=== PATIENT | male | born 1990 | race Caucasian/White ===

== ENCOUNTER 2018-02-22 06:36 | Emergency (ER) | payer SELFPAY ==
[2018-02-22] MEDS ORDERED: CIPROFLOXACIN HCL/DEXAMETH OTIC DROP 7.5 ML AU ONE (07:49)
[2018-02-22] MEDS ORDERED: LIDOCAINE 2% URO-JET 5 ML KIT MM ONE (07:49)
--- NOTE | 2018-02-22 07:51 | ER Document Report ---
ED ENT - General Chief Complaint: Ear Pain Stated Complaint: EAR PAIN Time Seen by Provider: 02/22/18 07:17 Mode of Arrival: Ambulatory Information source: Patient Notes: Patient is a 28-year-old male who presents to the ER today for bilateral ear pain times approximately 4 days. Patient states that he was swimming in a pool yesterday and the right ear started hurting worse. He denies any drainage from the ears, states that he did try [id number] earwax drops that seem to help a little. Patient denies any sore throat, cough, runny nose, fever or chills. He denies any loss of hearing. TRAVEL OUTSIDE OF THE [place] IN LAST 30 DAYS: No - Related Data Allergies/Adverse Reactions: No Known Allergies Allergy (Unverified 02/22/18 06:38) Past Medical History - General Information source: Patient - Social History Smoking Status: Current Every Day Smoker Chew tobacco use (# tins/day): No Frequency of alcohol use: Rare Drug Abuse: None Family History: Reviewed & Not Pertinent Patient has suicidal ideation: No Patient has homicidal ideation: No Renal/ Medical History: Denies: Hx Peritoneal Dialysis Review of Systems - Review of Systems Constitutional: No symptoms reported EENT: See HPI Cardiovascular: No symptoms reported Respiratory: No symptoms reported Gastrointestinal: No symptoms reported Genitourinary: No symptoms reported Male Genitourinary: No symptoms reported Musculoskeletal: No symptoms reported Skin: No symptoms reported Hematologic/Lymphatic: No symptoms reported Neurological/Psychological: No symptoms reported Physical Exam - Vital signs Vitals: Temp Pulse Resp BP Pulse Ox 97.9 F 79 20 135/79 H 96 02/22/18 06:40 02/22/18 06:40 02/22/18 06:40 02/22/18 06:40 02/22/18 06:40 - Notes Notes: PHYSICAL EXAMINATION: GENERAL: Well-appearing and in no acute distress. HEAD: Atraumatic, normocephalic. EYES: Pupils equal round and reactive to light, extraocular movements intact, sclera anicteric, conjunctiva are normal. ENT: Left ear canal erythematous, edematous with tenderness to otoscope exam, no discharge, TMs pearly rene with good bony landmarks, nares patent, oropharynx clear without exudates. Moist mucous membranes. Bilateral mastoids nontender and nonerythematous NECK: Normal range of motion, supple without lymphadenopathy LUNGS: CTAB and equal. No wheezes rales or rhonchi. HEART: Regular rate and rhythm without murmurs EXTREMITIES: Normal range of motion, no pitting edema. No cyanosis. NEUROLOGICAL: Cranial nerves grossly intact. Normal sensory/motor exams. PSYCH: Normal mood, normal affect. SKIN: Warm, Dry, normal turgor, no rashes or lesions noted Course - Re-evaluation Re-evalutation: 02/22/18 08:21 Patient is at home with Ciprodex eardrops for the entire course of treatment from here. - Vital Signs Vital signs: Temp Pulse Resp BP Pulse Ox 97.9 F 79 20 135/79 H 96 02/22/18 06:40 02/22/18 06:40 02/22/18 06:40 02/22/18 06:40 02/22/18 06:40 Discharge - Discharge Clinical Impression: Right otitis externa Qualifiers: Otitis externa type: swimmer's ear Chronicity: acute Qualified Code(s): H60.331 - Swimmer's ear, right ear Condition: Stable Disposition: HOME, SELF-CARE Instructions: Use of Ear Drops ([facility]), Otitis Externa ([facility]) Additional Instructions: You can put the lidocaine jelly in the ear, approximately 1 drop of it every 2 hours as needed for pain. Return immediately for any new or worsening symptoms. Follow up with primary care provider, call tomorrow to make followup appointment. No swimming until symptoms resolve and the ear feels better. Probably about 5 days. Forms: Return to Work
[2018-02-22 08:33] VITALS: BP 144/87
== END 2018-02-22 08:33 | disposition home or self-care (01) ==
LOC: ER 06:36
DX: H60.331 Swimmer's ear, right ear (principal); H92.03 Otalgia, bilateral; F17.200 Nicotine dependence, unspecified, uncomplicated
CPT/HCPCS: 99282; J3490 ×2

== ENCOUNTER 2020-05-12 07:43 | Emergency (ER) | payer OTHER ==
[2020-05-12] MEDS ORDERED: KETOROLAC TROMETHAMINE 0.45% 4 DROP/0.4 ML DROPERETTE OU ONE (08:19)
[2020-05-12] MEDS ORDERED: TETRACAINE HCL 0.5% OPH SOLN 4 ML OU ONE (08:19)
--- NOTE | 2020-05-12 08:49 | ER Document Report ---
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 He reports bilateral eye pain with blurry vision. TRAVEL OUTSIDE OF THE [place] IN LAST 30 DAYS: No - Related Data Allergies/Adverse Reactions: No Known Allergies Allergy (Unverified 02/22/18 06:38) Past Medical History - General Information source: Patient - Social History Smoking Status: Current Every Day Smoker Cigarette use (# per day): Yes - 1 ppd Frequency of alcohol use: None Drug Abuse: None Lives with: Family Family History: Reviewed & Not Pertinent - Medical History Medical History: Negative Surgical Hx: Negative Review of Systems - Review of Systems Constitutional: No symptoms reported EENT: See HPI, Eye pain Cardiovascular: No symptoms reported Respiratory: No symptoms reported Gastrointestinal: No symptoms reported Genitourinary: No symptoms reported Male Genitourinary: No symptoms reported Musculoskeletal: No symptoms reported Skin: No symptoms reported Hematologic/Lymphatic: No symptoms reported Neurological/Psychological: No symptoms reported -: Yes All other systems reviewed and negative Physical Exam - Vital signs Vitals: Temp Pulse Resp BP Pulse Ox 98.3 F 77 18 160/94 H 97 05/12/20 07:48 05/12/20 07:48 05/12/20 07:48 05/12/20 07:48 05/12/20 07:48 - Notes Notes: Physical Exam: General: Alert, appears uncomfortable. HEENT: Normocephalic. Atraumatic. PERRLA. Extraocular movements intact. Oropharynx clear. Bilateral conjunctival injection. Photophobia. Neck: Supple. Respiratory: No respiratory distress. Abdominal: Normal Inspection. No distension. Extremities: Moves all four extremities. Neurological: Normal cognition. AAOx4. Normal speech. Psychological: Normal affect. Normal Mood. Skin: Warm. Dry. Normal color. Course - Vital Signs Vital signs: Temp Pulse Resp BP Pulse Ox 98.3 F 80 18 141/92 H 100 05/12/20 07:48 05/12/20 09:23 05/12/20 07:48 05/12/20 09:23 05/12/20 09:23 Procedures - Eye Procedure Bilateral Alcaine Drops Administered: Yes Acular drops administered: Bilateral Antibiotic Oinment/Drps Admin: Both eyes Cyclogel 2 Drops Administered: Both eyes Slit lamp used: No Notes: 05/12/20 15:58 Fluorescein stain and black light shows hazy uptake on the cornea is with the right being slightly more than the left. Both eyes irrigated with normal saline after the examination. Discharge - Discharge Clinical Impression: UV conjunctivitis Qualifiers: Laterality: bilateral Qualified Code(s): H16.133 - Photokeratitis, bilateral Condition: Stable Disposition: HOME, SELF-CARE Additional Instructions: Corneal Ultraviolet Burn The cornea of your eye has been burned by ultraviolet radiation. This is often called "flash burn," because it's usually caused by exposure to arc welding. Your eye may be red and painful until completely healed. Swelling of the cornea makes it difficult to see clearly. The usual treatment is to place antibiotics in the eye. If the eye is severely irritated, the pupil may be dilated to ease the pain. In addition, pain medication may be necessary. Repeated use of numbing drops is hazardous, so they are not prescribed. Don't drive or operate machinery until you have the full use of both eyes. Healing of the cornea usually occurs overnight. If the eye pain becomes severe, or if there is purulent drainage, call the doctor or return at once for re-evaluation. Put the ketorolac eyedrops--1 drop into each eye every 4 hours for the next 1 to 2 days until the eyes are no longer painful. Put the polymyxin antibiotic eyedrops--1 drop into each eye every 4 hours for the next 2 to 3 days. Use ice packs to the eyes for additional pain relief today. Take Tylenol and ibuprofen as needed for headache and pain. Follow-up with a local eye doctor if not improving over the next 1 to 2 days. RETURN TO THE EMERGENCY ROOM IF ANY NEW OR WORSENING SYMPTOMS. Prescriptions: Ketorolac Tromethamine [Acular] 1 drop OU Q4 PRN #5 ml PRN Reason: I personally performed the services described in the documentation, reviewed and edited the documentation which was dictated to the scribe in my presence, and it accurately records my words and actions.
[2020-05-12] MEDS ORDERED: POLYMYXIN B SULFATE/TMP OPH SOLN (10 ML/ER DISP) OU ONE (08:57)
[2020-05-12] MEDS ORDERED: IBUPROFEN 800 MG TABLET PO ONE (09:02)
[2020-05-12 09:25] VITALS: BP 141/92
== END 2020-05-12 09:26 | disposition home or self-care (01) ==
LOC: ER 07:43
DX: H16.133 Photokeratitis, bilateral (principal); W89.8XXA Exposure to other man-made visible and ultraviolet light, initial encounter; Y99.0 Civilian activity done for income or pay; F17.210 Nicotine dependence, cigarettes, uncomplicated
CPT/HCPCS: 99283; J3490 ×2

== ENCOUNTER 2020-07-03 12:40 | Emergency (ER) | payer SELFPAY ==
[2020-07-03 13:13] VITALS: BP 152/94
--- NOTE | 2020-07-03 13:32 | ER Document Report ---
ED Medical Screen (RME) - General Chief Complaint: Facial Swelling Stated Complaint: EYE SWELLING/PAIN Time Seen by Provider: 07/03/20 13:26 Mode of Arrival: Ambulatory Information source: Patient Notes: 30-year-old male presented to ED for cellulitis around the left eye. He states he had a bump that he thought was a pimple above his left eye. He states he squeezed it about 3 AM. He states since then he has had pain and swelling redness and heat to the left side of his face down to below his eye. His eye is partially swollen shut. I have ordered blood and a IV contrasted CT of the f jewel. He will be seen by another provider. States she smokes 1/2 pack a day does not drink or do any drugs does not have any past medical or surgical history. I have greeted and performed a rapid initial assessment of this patient. A comprehensive ED assessment and evaluation of the patient, analysis of test results and completion of medical decision making process will be conducted by an additional ED providers. TRAVEL OUTSIDE OF THE [place] IN LAST 30 DAYS: No - Related Data Allergies/Adverse Reactions: No Known Allergies Allergy (Unverified 02/22/18 06:38) Past Medical History Renal/ Medical History: Denies: Hx Peritoneal Dialysis Physical Exam - Vital signs Vitals: Temp Pulse Resp BP Pulse Ox 98.0 F 80 18 152/94 H 100 07/03/20 13:12 07/03/20 13:12 07/03/20 13:12 07/03/20 13:12 07/03/20 13:12 Course - Vital Signs Vital signs: Temp Pulse Resp BP Pulse Ox 98.0 F 80 18 152/94 H 100 07/03/20 13:12 07/03/20 13:12 07/03/20 13:12 07/03/20 13:12 07/03/20 13:12
[2020-07-03 14:08] LABS: ABSOLUTE BASOPHILS # (AUTO) 0.1 10^3/uL (0.0-0.2); ABSOLUTE EOSINOPHILS # (AUTO) 0.2 10^3/uL (0.0-0.6); ABSOLUTE LYMPHOCYTES (AUTO) 2.3 10^3/uL (0.5-4.7); ABSOLUTE MONOCYTES (AUTO) 1.2 10^3/uL (0.1-1.4); ABSOLUTE NEUT (AUTO) 6.8 10^3/uL (1.7-8.2); BASOPHILS % (AUTO) 0.5 % (0-2); EOSINOPHILS % (AUTO) 1.9 % (0-6); HEMATOCRIT 48.3 % (37.9-51.0); HEMOGLOBIN 16.6 g/dL (13.5-17.0); LYMPHOCYTES % (AUTO) 21.6 % (13-45); MEAN CORPUSCULAR HEMOGLOBIN 31.3 pg (27.0-33.4); MEAN CORPUSCULAR HGB CONC 34.4 g/dL (32.0-36.0); MEAN CORPUSCULAR VOLUME 91 fl (80-97); MONOCYTES % (AUTO) 11.7 % (3-13); PLATELET COUNT 203 10^3/uL (150-450); RED CELL DISTRIBUTION WIDTH 13.4 % (11.5-14.0); SEGMENTED NEUTROPHILS % (AUTO) 64.3 % (42-78); TOTAL CELLS COUNTED % (AUTO) 100 %; WHITE BLOOD COUNT 10.6 10^3/uL (4.0-10.5)
--- NOTE | 2020-07-03 14:09 | RADIOLOGY REPORT (SQ) ---
EXAM DESCRIPTION: CT FACIAL AREA WITH IMAGES COMPLETED DATE/TIME: 07/03/2020 1:58 pm REASON FOR STUDY: Facial cellulitis around the left eye COMPARISON: None. TECHNIQUE: Post contrast images through the facial bones and orbits windowed for bone and soft tissu e. Additional coronal and sagittal reconstructed images reviewed. All images stored on PACS. All CT scanners at this facility use dose modulation, iterative reconstruction, and/or weight based d osing when appropriate to reduce radiation dose to as low as reasonably achievable (ALARA). [facility]: Dose Right [facility]: CareDose [facility]: Dose Right [facility]: Teradose 4D [facility]: [employer] CONTRAST TYPE AND DOSE: 50 mL Omnipaque 350- low osmolar. RENAL FUNCTION: None required. The patient is less than 50 years old. RADIATION DOSE: CT Rad equipment meets quality standard of care and radiation dose reduction techniq ues were employed. CTDIvol: 30.4 mGy. DLP: 612 mGy-cm. . LIMITATIONS: None. FINDINGS: FACIAL BONES: No fracture or bone lesion. ORBITS: Periorbital swelling on the left. No focal drainable abscess. No postseptal involvement. PARANASAL SINUSES: Clear. No significant mucosal thickening, mass or fluid. No nasal polyps. Maxilla ry sinus outlets are patent. SOFT TISSUES: Occasional reactive lymph node is noted. INFERIOR BRAIN: Limited view. No acute findings. OTHER: No other significant finding. IMPRESSION: Left periorbital cellulitis. No focal drainable abscess. No postseptal involvement. TECHNICAL DOCUMENTATION: JOB ID: [id number] Quality ID # [id number]: Final reports with documentation of one or more dose reduction techniques (e.g., Au tomated exposure control, adjustment of the mA and/or kV according to patient size, use of iterative reconstruction technique) 2010 [employer]- All Rights Reserved Reading location - IP/workstation name: [email or web address]
[2020-07-03 14:41] LABS: ALBUMIN 4.6 g/dL (3.5-5.0); ALKALINE PHOSPHATASE 82 U/L (38-126); ANION GAP 12 (5-19); ASPARTATE AMINO TRANSFERASE 30 U/L (17-59); BILIRUBIN,DIRECT 0.1 mg/dL (0.0-0.4); BILIRUBIN,TOTAL 0.7 mg/dL (0.2-1.3); BLOOD UREA NITROGEN 16 mg/dL (7-20); CALCIUM 9.9 mg/dL (8.4-10.2); CARBON DIOXIDE 25 mmol/L (22-30); CHLORIDE 104 mmol/L (98-107); GLUCOSE 96 mg/dL (75-110); POTASSIUM 3.9 mmol/L (3.6-5.0); TOTAL PROTEIN 7.6 g/dL (6.3-8.2)
[2020-07-03] MEDS ORDERED: CLINDAMYCIN 600 MG/D5W RTU 600 MG/50 ML RTUPB IV ONE ×2 (18:26→20:00)
[2020-07-03] MEDS ORDERED: CLINDAMYCIN 900 MG/D5W RTU 900 MG/50 ML RTUPB IV ONE (18:35)
[2020-07-03] MEDS ORDERED: DEXAMETHASONE SOD PHOSPHATE INJ 4 MG/1 ML VIAL IV ONE (18:36)
[2020-07-03] MEDS ORDERED: KETOROLAC TROMETHAMINE INJ/PF 30 MG/1 ML SDV IV ONE (19:02)
[2020-07-03] MEDS ORDERED: CLINDAMYCIN 600 MG/D5W RTU 600 MG/50 ML RTUPB IV SCH (19:45)
--- NOTE | 2020-07-03 20:12 | ER Document Report ---
ED General - General Chief Complaint: Facial Swelling Stated Complaint: EYE SWELLING/PAIN Time Seen by Provider: 07/03/20 13:26 Mode of Arrival: Ambulatory Information source: Patient, [facility] Records Notes: This 30-year-old male patient comes emergency room complaining of pain and swelling around his left eye. He reports he had a pimple up above the eyebrow that he squeezed last night but did not get anything out of it. This morning it was more swollen so he squeezed it again without getting anything out of it. Throughout the day he developed swelling that ended up going around the eye and was becoming quite painful. Patient denies visual problems, denies fever. He was seen at triage where lab work and a CT scan was ordered. The contrasted CT scan showed periorbital cellulitis without focal drainable abscess or post septal involvement. TRAVEL OUTSIDE OF THE [place] IN LAST 30 DAYS: No - Related Data Allergies/Adverse Reactions: No Known Allergies Allergy (Unverified 02/22/18 06:38) Past Medical History - General Information source: Patient, [facility] Records - Social History Smoking Status: Current Every Day Smoker Cigarette use (# per day): Yes - 1 PPD Chew tobacco use (# tins/day): No Smoking Education Provided: No Frequency of alcohol use: None Drug Abuse: None Lives with: Parents Family History: Reviewed & Not Pertinent - Medical History Medical History: Negative Surgical Hx: Negative Review of Systems - Review of Systems Constitutional: No symptoms reported. denies: Fever EENT: See HPI Cardiovascular: No symptoms reported Respiratory: No symptoms reported Gastrointestinal: No symptoms reported Genitourinary: No symptoms reported Musculoskeletal: No symptoms reported Skin: No symptoms reported Hematologic/Lymphatic: No symptoms reported Neurological/Psychological: No symptoms reported Physical Exam - Vital signs Vitals: Temp Pulse Resp BP Pulse Ox 98.0 F 80 18 152/94 H 100 07/03/20 13:12 07/03/20 13:12 07/03/20 13:12 07/03/20 13:12 07/03/20 13:12 - General General appearance: Appears well In distress: None - HEENT Head: Normocephalic, Atraumatic Eyes: Normal, Other - Left supraorbital forehead has a reddish firm swelling with no drainage. The erythema and swelling extends into the upper eyelid which almost covers the eye, and into the lateral periorbital soft tissues. The entire area is tender, however the swollen supraorbital region is the most tender as that is the source of the infection. Pupils: PERRL - Respiratory Respiratory status: No respiratory distress - Cardiovascular Rhythm: Regular - Abdominal Inspection: Normal - Back Back: Normal - Extremities General upper extremity: Normal inspection General lower extremity: Normal inspection - Neurological Neuro grossly intact: Yes - Psychological Associated symptoms: Normal affect, Normal mood - Skin Skin Temperature: Warm Skin Moisture: Dry Skin Color: Normal Course - Vital Signs Vital signs: Temp Pulse Resp BP Pulse Ox 98.0 F 80 18 152/94 H 100 07/03/20 13:12 07/03/20 13:12 07/03/20 13:12 07/03/20 13:12 07/03/20 13:12 - Laboratory Result Diagrams: 07/03/20 13:42 07/03/20 13:42 Laboratory results interpreted by me: 07/03/20 07/03/20 13:42 13:42 WBC 10.6 H Creatinine 1.31 H Discharge - Discharge Clinical Impression: Periorbital cellulitis of left eye Condition: Stable Disposition: HOME, SELF-CARE Additional Instructions: Cellulitis You have an infection of your skin and underlying soft tissues called cell ulitis. This is due to bacteria, which can enter through any break in the skin, or even through an irritated hair follicle. Untreated, cellulitis will usually worsen. Antibiotics are required. Usually, warm packs or warm soaks, and elevation of the infected area are recommended. You should start getting better within 24 to 36 hours. Most infections respond quickly to the right medication. Follow-up care is important, however, to check for abscess (boil) formation, unsuspected foreign body, or resistant infection. If you develop fever, chills, or if the area of infection is becoming rapidly more swollen or painful, call the doctor at once. Take the clindamycin that was dispensed tonight at bedtime. Take the pain medication that was dispensed as needed for pain. Take ibuprofen 600 mg every 8 hours for the next 2 to 3 days. Use warm soaks to your forehead off and on for the next 1 to 2 days. Do not squeeze or press on the painful swollen tissues. Limit activity and rest over the next few days. Return to the emergency room for recheck if the pain, redness, and swelling does not go down over the next few days, or if it gets worse. If the area where the pimple was becomes a localized swelling suggesting an abscess, you should return to have it evaluated. RETURN TO THE EMERGENCY ROOM IF ANY NEW OR WORSENING SYMPTOMS. Prescriptions: Clindamycin HCl 300 mg PO QID #40 capsule
[2020-07-03] MEDS ORDERED: CLINDAMYCIN HCL 150 MG CAPSULE PO ONE (20:37)
[2020-07-03] MEDS ORDERED: HYDROCODONE/ACETAMINOPHEN 5-325 MG (6 TAB/ER DISP) PO PRN (20:37)
== END 2020-07-03 20:58 | disposition home or self-care (01) ==
LOC: ER 12:40
DX: L03.213 Periorbital cellulitis (principal); R22.0 Localized swelling, mass and lump, head; F17.210 Nicotine dependence, cigarettes, uncomplicated
CPT/HCPCS: 99285; 96375; 96365; 36415; 85025; 80053; 70487; J1885